=== PATIENT | male | born 1930 | race Caucasian/White ===

== ENCOUNTER 2017-04-24 11:13 | Inpatient (IN) | payer MEDICARE, OTHER ==
[2017-04-24 14:03] LABS: BASOPHIL % 0.6 % (0.0-0.4); Eosinophil % 0.7 % (0.00-5.0); Granulocytes % 77.3 % (36.0-66.0); Lymphocytes % 12.3 % (24.0-44.0); Mean Platelet Volume 9.6 fl (6-9.5); Monocytes % 9.1 % (0.0-12.0); Platelet Count 291 K/mm3 (150-450); Red Blood Count 3.97 M/mm3 (4.1-5.6); Red Cell Distribution Width 13.3 % (11.5-14.0); White Blood Count 10.9 K/mm3 (4.0-10.5)
[2017-04-24 14:18] LABS: Mean Corpuscular Hemoglobin 32.4 pg (26-32)
[2017-04-24 14:29] LABS: ALBUMIN 2.5 g/dL (3.4-5.0); ALKALINE PHOSPHATASE 76 U/L (46-116); ANION GAP 9.9 MEQ/L (5-15); BLOOD UREA NITROGEN 19 mg/dL (9-20); CHLORIDE 102 mEq/L (98-107); Glucose 144 MG/DL (70-110); Potassium 4.5 mEq/L (3.5-5.1); SGOT/AST 20 U/L (15-37); SGPT/ALT 23 U/L (12-78); SODIUM 137 mEq/L (136-145); Total Protein 6.3 gm/dL (6.4-8.2)
--- NOTE | 2017-04-24 14:46 | XRAY ---
Exam: AP upright portable chest film from 1325 hrs. on 04/24/2017. Comparison: Two-view upright sitting chest films from 03/05/2010. Indication: Short of breath. Findings: The transverse heart size appears within normal limits for this AP portable technique. Moderate tortuosity of the descending thoracic aorta is seen. The lungs are adequately expanded. I see no lung infiltrates, vascular congestion, pneumothorax, or pleural fluid. Degenerative changes are seen within the thoracic spine and both shoulders. Impression: 1. No air space infiltrates or other acute cardiopulmonary disease is seen.
[2017-04-24] MEDS: Sodium Chloride 0.9% 1000 ML 1,000 ML IV SCH (16:01)
[2017-04-24] MEDS: Levaquin 250MG/50ML D5W 250 MG/50 ML BAG IV SCH (16:01)
[2017-04-24 16:02] LABS: Collection Type CLEAN CATCH; Leukocyte Esterase NEGATIVE (NEGATIVE)
[2017-04-24 16:03] LABS: Bilirubin NEGATIVE (NEGATIVE); Blood NEGATIVE Ery/ul (0-5); COMPLETE URINE MICROSCOPIC? NO; Glucose NEGATIVE (NEGATIVE)
[2017-04-24] MEDS ORDERED: NON-FORMULARY ITEM (Cholecalciferol (Vitamin D3) [Vitamin D3] 1 CAP) PO SCH (16:15)
[2017-04-24] MEDS ORDERED: MEDICATION INTERVENTION MC PRN ×2 (16:32→16:36)
[2017-04-24] MEDS ORDERED: NEURONTIN 300 MG PO SCH (20:00)
[2017-04-24] MEDS ORDERED: BETA CAROTENE VITS C E PO SCH (22:00)
[2017-04-24] MEDS ORDERED: MINS PO SCH (22:00)
[2017-04-24] MEDS ORDERED: BABY ASPIRIN 81 MG CHEW PO SCH (22:00)
[2017-04-24] MEDS ORDERED: PSEUDOEPHEDRINE PO SCH (22:00)
[2017-04-24] MEDS ORDERED: CARVEDILOL PHOSPHATE 20 MG PO SCH (22:00)
[2017-04-24] MEDS ORDERED: GUAIFENESIN PO SCH (22:00)
[2017-04-24] MEDS ORDERED: GLUCOSAMINE SULFATE DIPOT CHLR PO SCH (22:00)
[2017-04-24] MEDS: Coreg 6.25 MG PO SCH (22:50)
[2017-04-24] MEDS: Mucinex 600MG ER Tabs PO SCH (22:51)
[2017-04-24] MEDS: Lantus Insulin SQ SCH (22:51)
[2017-04-24] MEDS: ECOTRIN 81 MG PO SCH (22:51)
[2017-04-24] MEDS: NORVASC 5 MG PO SCH (22:51)
[2017-04-24] MEDS: Ocuvite Tablet PO SCH (22:51)
[2017-04-24] MEDS: MAG-OX 400 PO SCH (22:51)
[2017-04-24] MEDS: ULTRAM 50 MG PO SCH (22:52)
[2017-04-24] MEDS: RYTHMOL 150 MG PO SCH (22:52)
[2017-04-25] MEDS: Coreg 6.25 MG PO SCH ×2 (09:34→21:16)
[2017-04-25] MEDS: RYTHMOL 150 MG PO SCH ×2 (09:34→21:17)
[2017-04-25] MEDS: CLARITIN 10 MG PO SCH (09:34)
[2017-04-25] MEDS: Zestril 20 MG PO SCH (09:34)
[2017-04-25] MEDS: THERAGRAN MULTIVITAMIN PO SCH (09:34)
[2017-04-25] MEDS: PLAVIX 75 MG Tablet PO SCH (09:34)
[2017-04-25] MEDS: Levaquin 250MG/50ML D5W 250 MG/50 ML BAG IV SCH (09:34)
[2017-04-25] MEDS: ULTRAM 50 MG PO SCH ×2 (09:34→21:18)
[2017-04-25] MEDS: LASIX 20 MG PO SCH (09:34)
[2017-04-25] MEDS: Lantus Insulin SQ SCH ×2 (09:35→21:19)
[2017-04-25] MEDS ORDERED: LYCOP PO SCH (10:00)
[2017-04-25] MEDS ORDERED: NON-FORMULARY ITEM (Cetirizine Hcl [Allergy Relief] 10 MG) PO SCH (10:00)
[2017-04-25] MEDS ORDERED: TRAMADOL HCL 100 MG PO SCH (10:00)
[2017-04-25] MEDS ORDERED: FOLIC PO SCH (10:00)
[2017-04-25] MEDS ORDERED: MULTIVIT MINS PO SCH (10:00)
[2017-04-25] MEDS ORDERED: CINNAMON BARK 1000 MG PO SCH (10:00)
[2017-04-25] MEDS ORDERED: FLUZONE HIGH-DOSE 2017-18 SYR IM ONE (10:00)
[2017-04-25] MEDS ORDERED: IRON PO SCH (10:00)
[2017-04-25] MEDS: Sodium Chloride 0.9% 1000 ML 1,000 ML IV SCH (13:50)
[2017-04-25 13:55] LABS: BASOPHIL % 0.6 % (0.0-0.4); Eosinophil % 1.6 % (0.00-5.0); Granulocytes % 75.4 % (36.0-66.0); Lymphocytes % 12.9 % (24.0-44.0); Mean Cell Volume 97.4 fl (78-100); Mean Platelet Volume 9.8 fl (6-9.5); Monocytes % 9.5 % (0.0-12.0); Platelet Count 275 K/mm3 (150-450); Red Blood Count 3.89 M/mm3 (4.1-5.6); Red Cell Distribution Width 13.4 % (11.5-14.0); White Blood Count 9.7 K/mm3 (4.0-10.5)
[2017-04-25 14:07] LABS: ALBUMIN 2.4 g/dL (3.4-5.0); ALKALINE PHOSPHATASE 79 U/L (46-116); ANION GAP 9.6 MEQ/L (5-15); BLOOD UREA NITROGEN 15 mg/dL (9-20); CHLORIDE 102 mEq/L (98-107); Carbon Dioxide 29.9 mEq/L (21-32); Glucose 202 MG/DL (70-110); Potassium 4.3 mEq/L (3.5-5.1); SGOT/AST 18 U/L (15-37); SGPT/ALT 30 U/L (12-78); SODIUM 137 mEq/L (136-145); Total Protein 6.3 gm/dL (6.4-8.2)
[2017-04-25 14:21] LABS: Mean Corpuscular Hemoglobin 31.8 pg (26-32)
[2017-04-25] MEDS: Ocuvite Tablet PO SCH (21:16)
[2017-04-25] MEDS: NORVASC 5 MG PO SCH (21:16)
[2017-04-25] MEDS: MAG-OX 400 PO SCH (21:17)
[2017-04-25] MEDS: Mucinex 600MG ER Tabs PO SCH (21:17)
[2017-04-25] MEDS: ECOTRIN 81 MG PO SCH (21:17)
[2017-04-25] MEDS: TYLENOL 325 MG PO PRN (23:37)
[2017-04-26] MEDS: Sodium Chloride 0.9% 1000 ML 1,000 ML IV SCH (10:00)
[2017-04-26] MEDS: Zestril 20 MG PO SCH (10:15)
[2017-04-26] MEDS: RYTHMOL 150 MG PO SCH ×2 (10:15→21:10)
[2017-04-26] MEDS: Levaquin 250MG/50ML D5W 250 MG/50 ML BAG IV SCH (10:15)
[2017-04-26] MEDS: Coreg 6.25 MG PO SCH ×2 (10:16→21:10)
[2017-04-26] MEDS: PLAVIX 75 MG Tablet PO SCH (10:16)
[2017-04-26] MEDS: Lantus Insulin SQ SCH ×2 (10:16→21:10)
[2017-04-26] MEDS: ULTRAM 50 MG PO SCH ×2 (10:16→21:10)
[2017-04-26] MEDS: LASIX 20 MG PO SCH (10:16)
[2017-04-26] MEDS: THERAGRAN MULTIVITAMIN PO SCH (10:16)
[2017-04-26] MEDS: CLARITIN 10 MG PO SCH (10:16)
[2017-04-26] MEDS: MAG-OX 400 PO SCH (21:10)
[2017-04-26] MEDS: NORVASC 5 MG PO SCH (21:10)
[2017-04-26] MEDS: Ocuvite Tablet PO SCH (21:10)
[2017-04-26] MEDS: Mucinex 600MG ER Tabs PO SCH (21:10)
[2017-04-26] MEDS: ECOTRIN 81 MG PO SCH (21:10)
[2017-04-26] MEDS: TYLENOL 325 MG PO PRN (21:17)
[2017-04-27] MEDS: Sodium Chloride 0.9% 1000 ML 1,000 ML IV SCH (07:37)
--- NOTE | 2017-04-27 09:35 | PROG NOTE ---
DATE: 04/26/2017 Chart is reviewed and events noted. At the time of this evaluation the patient is alert, awake and comfortable. Complains of swelling in left arm, left leg which is somewhat better. Complains of mild pain in left upper extremity. Denies any other new complaints. Appears comfortable. He denies increased shortness of breath. PHYSICAL EXAMINATION: VITAL SIGNS: Blood pressure 137/61, heart rate 98, respiratory rate 20, temperature 97.1F. Oxygen saturation 98%. HEENT: No pallor or icterus is noted. NECK: No JVD is present. CVS: S1, S2 present. RESPIRATORY: Breath sounds are bilaterally diminished. ABDOMEN: Obese, soft, nontender. NEURO: He is alert, answers simple questions appropriately, follows simple commands appropriately. EXTREMITIES: Edema on left upper and left lower extremity. LABORATORY DATA AND TESTS: There were no new labs today. Medications were reviewed. ASSESSMENT: An 86 year old man with impression: 1) CONGESTIVE HEART FAILURE WITH DECOMPSNATION. 2) CELLULITIS, LEFT UPPER EXTREMITY. 3) HYPERTENSION/CORONARY ARTERY DISEASE. 4) DIABETES MELLITUS. PLAN: Continue broad spectrum IV antibiotics. Continue diuretics. Follow up labs in the a.m. The plan was discussed with the patient and family. They seem to be in understanding and agreement. Discussed with patient's nurse, Sary.
[2017-04-27] MEDS ORDERED: VITAMIN D PO SCH (10:00)
[2017-04-27] MEDS: RYTHMOL 150 MG PO SCH (10:23)
[2017-04-27] MEDS: THERAGRAN MULTIVITAMIN PO SCH (10:23)
[2017-04-27] MEDS: CLARITIN 10 MG PO SCH (10:23)
[2017-04-27] MEDS: Levaquin 250MG/50ML D5W 250 MG/50 ML BAG IV SCH (10:23)
[2017-04-27] MEDS: ULTRAM 50 MG PO SCH (10:23)
[2017-04-27] MEDS: Coreg 6.25 MG PO SCH (10:23)
[2017-04-27] MEDS: Zestril 20 MG PO SCH (10:23)
[2017-04-27] MEDS: PLAVIX 75 MG Tablet PO SCH (10:24)
[2017-04-27] MEDS: LASIX 20 MG PO SCH (10:24)
[2017-04-27] MEDS: Lantus Insulin SQ SCH (10:25)
[2017-04-27 11:10] LABS: Mean Cell Volume 96.7 fl (78-100); Mean Corpuscular Hemoglobin 31.8 pg (26-32); Mean Platelet Volume 9.8 fl (6-9.5); Platelet Count 324 K/mm3 (150-450); Red Blood Count 3.99 M/mm3 (4.1-5.6); White Blood Count 10.9 K/mm3 (4.0-10.5)
[2017-04-27 11:24] LABS: ALBUMIN 2.4 g/dL (3.4-5.0); ALKALINE PHOSPHATASE 76 U/L (46-116); ANION GAP 9.4 MEQ/L (5-15); BLOOD UREA NITROGEN 14 mg/dL (9-20); CHLORIDE 101 mEq/L (98-107); Carbon Dioxide 30.3 mEq/L (21-32); Glucose 167 MG/DL (70-110); Potassium 4.5 mEq/L (3.5-5.1); SGOT/AST 27 U/L (15-37); SGPT/ALT 27 U/L (12-78); SODIUM 136 mEq/L (136-145); Total Protein 6.1 gm/dL (6.4-8.2)
[2017-04-27 12:00] VITALS: BP 162/74; PULSE 65; O2SAT 97
--- NOTE | 2017-04-27 12:48 | PCM.NOTE ---
Date and Time: 04/27/17 1247 Subjective Assessment: doing better Objective Exam General Appearance: no apparent distress, alert Neurologic Exam: alert, oriented x 3, cooperative, normal mood/affect, nml cerebellar function, sensation nml, No motor deficits Skin Exam: normal color, warm, dry Eye Exam: PERRL, EOMI, eyes nml inspection Ears, Nose, Throat Exam: normal ENT inspection, pharynx normal, moist mucous membranes Neck Exam: normal inspection, non-tender, supple, full range of motion Respiratory Exam: normal breath sounds, lungs clear, No respiratory distress Cardiovascular Exam: regular rate/rhythm, normal heart sounds Gastrointestinal/Abdomen Exam: soft, No tenderness, No mass Extremity Exam: normal inspection, normal range of motion Back Exam: normal inspection, normal range of motion, No CVA tenderness, No vertebral tenderness Male Genitalia Exam: deferred Rectal Exam: deferred OBJECTIVE DATA Vital Signs: Vital Signs - 24 hr Temp Pulse Resp BP Pulse Ox 04/27/17 11:59 98.1 F 65 16 162/74 97 04/27/17 07:52 97.6 F 66 20 161/72 95 04/27/17 04:33 98.2 F 82 18 137/76 93 L 04/26/17 23:38 98.4 F 83 22 137/73 97 04/26/17 21:30 68 20 96 04/26/17 20:00 98.1 F 78 19 148/69 96 04/26/17 16:00 97.3 F 72 20 139/64 97 Oxygen-Last 24 hours O2 Percentage 2 Liters = 28% O2 Percentage 2 Liters = 28% O2 Percentage 2 Liters = 28% O2 Percentage 2 Liters = 28% O2 Percentage 1 Liter = 24% Pain Assessment - Last Documented Pain Intensity 7 Pain Scale Used 0-10 Pain Scale Intake and Output: Intake & Output 04/25/17 04/26/17 04/27/17 04/28/17 11:59 11:59 11:59 11:59 Intake Total 1961 2981 4286 Output Total 1651 2450 3350 Balance 310 531 936 Weight 102.058 kg Lab Results: Accuchecks Accucheck Value: 167 Accucheck Value: 137 Accucheck Value: 206 Accucheck Value: 175 Lab Results-Last 24 Hours 04/27/17 04/27/17 Range/Units 10:30 10:40 WBC 10.9 H (4.0-10.5) K/mm3 RBC 3.99 L (4.1-5.6) M/mm3 Hgb 12.7 (12.5-18.0) gm/dl Hct 38.6 L (42-50) % MCV 96.7 (78-100) fl MCH 31.8 (26-32) pg MCHC 32.9 (32-36) g/dl RDW 13.0 (11.5-14.0) % Plt Count 324 (150-450) K/mm3 MPV 9.8 H (6-9.5) fl Sodium 136 (136-145) mEq/L Potassium 4.5 (3.5-5.1) mEq/L Chloride 101 (98-107) mEq/L Carbon Dioxide 30.3 (21-32) mEq/L Anion Gap 9.4 (5-15) MEQ/L BUN 14 (9-20) mg/dL Creatinine 0.78 (0.55-1.30) mg/dl Estimated GFR > 60 ML/MIN Glucose 167 H (70-110) MG/DL Calcium 8.6 (8.5-10.1) mg/dL Total Bilirubin 0.40 (0.2-1.0) mg/dL AST 27 (15-37) U/L ALT 27 (12-78) U/L Alkaline Phosphatase 76 (46-116) U/L NT-Pro-B Natriuret Pep 1652 H (0-450) pg/ml Serum Total Protein 6.1 L (6.4-8.2) gm/dL Albumin 2.4 L (3.4-5.0) g/dL Assessment/Plan (1) Cellulitis Current Visit: Yes Status: Acute Qualifiers: Site of cellulitis: extremity Site of cellulitis of extremity: upper extremity Laterality: left Qualified Code(s): L03.114 - Cellulitis of left upper limb Code(s): L03.90 - CELLULITIS, UNSPECIFIED (2) Heart failure Current Visit: Yes Status: Acute Qualifiers: Heart failure type: combined Heart failure chronicity: chronic Qualified Code(s): I50.42 - 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
--- NOTE | 2017-04-27 13:21 | PCM.DCORD ---
- Discharge Discharge Date: 04/27/17 Disposition: Home, Self-Care Condition: Stable Prescriptions: New Levofloxacin [Levaquin] 250 mg PO AC #7 tablet Continue Glucosamine Sulfate Dipot Chlr [Glucosamine] 2,000 mg PO HS Cinnamon Bark [Cinnamon] 1,000 mg PO DAILY Aspirin 81 gm Chew [Baby Aspirin 81 mg Chew] 81 mg PO HS Gabapentin 300 mg PO UD Lisinopril 20 mg [Zestril 20 MG] 20 mg PO DAILY Carvedilol Phosphate [Coreg Cr] 20 mg PO HS Amlodipine Besylate 5 mg [Norvasc 5 mg] 5 mg PO HS Insulin Glargine [Lantus Insulin] 40 unit SQ BID Furosemide [Lasix] 20 mg PO DAILY Guaifenesin/Pseudoephedrne HCl [Mucinex D ER Tablet] 400 mg PO HS Clopidogrel Bisulfate 75 mg [PLAVIX 75 MG Tablet] 75 mg PO DAILY Propafenone HCl 150 mg [Rythmol 150 mg] 150 mg PO BID Cholecalciferol (Vitamin D3) [Vitamin D3] 1 cap PO UD Magnesium Oxide [Magnesium] 400 mg PO HS Cetirizine HCl [Allergy Relief] 10 mg PO DAILY Multivit-Mins/Iron/Folic/Lycop [Centrum Men's Tablet] 1 each PO DAILY Tramadol HCl [Tramadol HCl ER] 100 mg PO DAILY Beta-Carotene(A)-Vits C,E/Mins [Vision Vitamins] 1 each PO HS Follow up with: DES BURNETTE MD [Primary Care Provider] - 1 Week Forms: Patient Portal Information
== END 2017-04-27 15:00 | disposition home health service (06) | DRG 292 ==
LOC: MED SURG 12:00 → OBSVTOIN 04-25 12:29
PROVIDERS: ADMIT General Practice; ATTEND General Practice
DX: I50.9 Heart failure, unspecified (principal); L03.114 Cellulitis of left upper limb; I25.810 Atherosclerosis of coronary artery bypass graft(s) without angina pectoris; K59.00 Constipation, unspecified; I10 Essential (primary) hypertension; E11.9 Type 2 diabetes mellitus without complications; Z79.899 Other long term (current) drug therapy
CPT/HCPCS: 36415; 71010; 80053; 81002; 82962; 83036; 83880; 85025; 85027; 87040; 87086; 93005; 94760; G0008; G0378; J1956; 90662; A9270-GY

== ENCOUNTER 2017-04-30 10:23 | Inpatient (IN) | payer MEDICARE, OTHER ==
[2017-04-30] MEDS ORDERED: Lasix 40 MG/4 ML IV ONE (10:33)
--- NOTE | 2017-04-30 10:35 | ERPHSYRPT ---
- History of Present Illness Time Seen by Provider: 04/30/17 10:29 Source: patient, EMS Physician History: The patient is an 86-year-old obese male brought in by ambulance from home complaining of worsening shortness of breath for about 2 days. He states he wouldn't have been able to make it to the night if it hadn't been for his CPAP. He is unable to sleep lying flat on his back, but instead needs to the upright in a seated position. He denies cough or fever. He was hospitalized last week for cellulitis. His legs are swollen but he states they always are. His past medical history is significant for hypertension, diabetes, CHF, A-fib, and morbid obesity. Timing/Duration: day(s) (2) Activities at Onset: rest Severity of Dyspnea-Max: moderate Severity of Dyspnea-Current: moderate Possible Cause: occasional episodes Associated Symptoms: edema, No cough, No chest pain/discomfort Allergies/Adverse Reactions: morphine Allergy (Verified 04/30/17 10:36) Home Medications: Amlodipine Besylate 5 mg [Norvasc 5 mg] 5 mg PO HS 01/30/15 [History] Aspirin 81 gm Chew [Baby Aspirin 81 mg Chew] 81 mg PO HS 01/30/15 [History ] Carvedilol Phosphate [Coreg Cr] 20 mg PO HS 01/30/15 [History] Cholecalciferol (Vitamin D3) [Vitamin D3] 1 cap PO UD 01/30/15 [History] Cinnamon Bark [Cinnamon] 1,000 mg PO DAILY 01/30/15 [History] Clopidogrel Bisulfate 75 mg [PLAVIX 75 MG Tablet] 75 mg PO DAILY 01/30/15 [History] Furosemide [Lasix] 20 mg PO DAILY 01/30/15 [History] Gabapentin 300 mg PO UD 01/30/15 [History] Glucosamine Sulfate Dipot Chlr [Glucosamine] 2,000 mg PO HS 01/30/15 [History] Guaifenesin/Pseudoephedrne HCl [Mucinex D ER Tablet] 400 mg PO HS 01/30/15 [ History] Insulin Glargine [Lantus Insulin] 40 unit SQ BID 01/30/15 [History] Lisinopril 20 mg [Zestril 20 MG] 20 mg PO DAILY 01/30/15 [History] Propafenone HCl 150 mg [Rythmol 150 mg] 150 mg PO BID 01/30/15 [History] Beta-Carotene(A)-Vits C,E/Mins [Vision Vitamins] 1 each PO HS 04/24/17 [History] Cetirizine HCl [Allergy Relief] 10 mg PO DAILY 04/24/17 [History] Magnesium Oxide [Magnesium] 400 mg PO HS 04/24/17 [History] Multivit-Mins/Iron/Folic/Lycop [Centrum Men's Tablet] 1 each PO DAILY 04/24/17 [ History] Tramadol HCl [Tramadol HCl ER] 100 mg PO DAILY 04/24/17 [History] Hx Tetanus, Diphtheria Vaccination/Date Given: No Hx Influenza Vaccination/Date Given: Yes Hx Pneumococcal Vaccination/Date Given: Yes - Review of Systems Constitutional: No Fever, No Chills Eyes: No Symptoms Ears, Nose, & Throat: No Symptoms Respiratory: Dyspnea Cardiac: No Chest Pain, No Edema, No Syncope Abdominal/Gastrointestinal: No Abdominal Pain, No Nausea, No Vomiting, No Diarrhea Genitourinary Symptoms: No Dysuria Musculoskeletal: No Back Pain, No Neck Pain Skin: Cellulitis Neurological: No Dizziness, No Focal Weakness, No Sensory Changes Psychological: No Symptoms Endocrine: No Symptoms Hematologic/Lymphatic: No Symptoms Immunological/Allergic: No Symptoms All Other Systems: Reviewed and Negative - Past Medical History Pertinent Past Medical History: Yes Neurological History: No Pertinent History ENT History: No Pertinent History Cardiac History: High Cholesterol Respiratory History: No Pertinent History Endocrine Medical History: Diabetes Type II Musculoskeletal History: No Pertinent History GI Medical History: No Pertinent History History: Renal Disease Male Reproductive Disorders: No Pertinent History - Past Surgical History Past Surgical History: Yes (knee, hip replacement, stint) Neuro Surgical History: No Pertinent History Cardiac: Cardiac Stent Respiratory: No Pertinent History Gastrointestinal: No Pertinent History Genitourinary: No Pertinent History Musculoskeletal: Joint Replacement Male Surgical History: No Pertinent History Other Surgical History: R. Hip, Knee replacent - Social History Smoking Status: Never smoker Exposure to second hand smoke: Yes Drug Use: none Patient Lives Alone: No - Nursing Vital Signs Nursing Vital Signs: Initial Vital Signs Temperature 97.3 F 04/30/17 10:29 Pulse Rate 82 04/30/17 10:29 Respiratory Rate 34 H 10/05/17 10:29 Blood Pressure 156/92 04/30/17 10:29 O2 Sat by Pulse Oximetry 70 L 04/30/17 10:29 Pain Scale Pain Intensity 0 - Physical Exam General Appearance: moderate distress Eye Exam: PERRL/EOMI Neck Exam: normal inspection, supple Respiratory Exam: crackles/rales Cardiovascular/Chest Exam: normal heart sounds, regular rate/rhythm Abdominal/Gastrointestinal Exam: soft, No tenderness, No distention, No mass Rectal Exam: not done Extremity Exam: non-tender, normal range of motion, normal inspection, no calf tenderness, no pedal edema, pedal edema (3+), swelling (also swelling of left arm.) Neurologic Exam: alert, oriented x 3, cooperative, 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, sensation nml, No motor deficits Skin Exam: normal color, warm, No dry SpO2 Interpretation: hypoxic, O2 applied - Course EKG Interpreted by Me: RATE, A-fib, Left [place] Deviation - Radiology Exams Chest X-ray Interpretation: Teleradiologist Report, Other (Port chest shows developing cardiomegaly, vascular congestion and small bibasilar effusions per Dr Conde.) Ordered Tests: Active Orders 24 hr Category Date Time Status Chief Cook STAT Care 04/30/17 10:34 Active EKG-ER Only STAT Care 04/30/17 10:33 Active IV Insertion STAT Care 04/30/17 10:33 Active Oxygen-ED Only NASAL CANNULA 2 lpm Care 04/30/17 10:33 Active CHEST 1 VIEW (PORTABLE) Stat Exams 04/30/17 10:33 Completed ARTERIAL BLOOD GASES Stat Lab 04/30/17 10:35 Completed BLOOD CULTURE Stat Lab 04/30/17 10:50 Received CBC W DIFF Stat Lab 04/30/17 10:45 Completed CMP Stat Lab 04/30/17 10:45 Completed D-DIMER QUANTITATION Stat Lab 04/30/17 10:45 Completed Lactic Acid Stat Lab 04/30/17 10:35 Completed NT PRO BNP Stat Lab 04/30/17 10:45 Completed TROPONIN Q3H Lab 04/30/17 10:45 Completed TROPONIN Q3H Lab 04/30/17 13:45 Ordered TROPONIN Q3H Lab 04/30/17 16:45 Ordered TROPONIN Q3H Lab 04/30/17 19:45 Ordered TROPONIN Q3H Lab 04/30/17 22:45 Ordered BiPap/CPAP Assessment STAT RT 04/30/17 10:50 Active Medication Summary Discontinued Medications Generic Name Dose Route Start Last Admin Trade Name Kiersten PRN Reason Stop Dose Admin Furosemide 40 mg 04/30/17 10:33 04/30/17 11:05 Lasix 40 Mg/4 Ml IV 04/30/17 10:34 40 mg STAT ONE Administration Furosemide Confirm 04/30/17 11:04 Lasix 40 Mg/4 Ml Administered 04/30/17 11:05 Dose 40 mg .ROUTE .Sun [id number] ONE Lab/Rad Data: Laboratory Result Diagrams 04/30/17 10:45 04/30/17 10:45 Laboratory Results 04/30/17 04/30/17 04/30/17 Range/Units 10:45 10:45 10:45 WBC (4.0-10.5) K/mm3 RBC (4.1-5.6) M/mm3 Hgb (12.5-18.0) gm/dl Hct (42-50) % MCV (78-100) fl MCH (26-32) pg MCHC (32-36) g/dl RDW (11.5-14.0) % Plt Count (150-450) K/mm3 MPV (6-9.5) fl Gran % (36.0-66.0) % Lymphocytes % (24.0-44.0) % Monocytes % (0.0-12.0) % Eosinophils % (0.00-5.0) % Basophils % (0.0-0.4) % Basophils # (0-0.4) D-Dimer 562 H* (0-500) ng/mL Puncture Site pCO2 (35-45) mmHg pO2 (75-100) mmHg Base Excess (-2.0-2.0) O2 Saturation (94-100) g/dF ABG pH (7.35-7.45) ABG HCO3 (22-28) ABG O2 Sat (Measured) (95-100) % Shawn Test A-a Gradient a/A Ratio Hemoglobin Carboxyhemoglobin (0.0-6.9) % THgb Methemoglobin (1.4-1.5) % Potassium 4.5 (3.5-5.1) Temperature C POC O2 Flow Rate % Sodium 133 L (136-145) mEq/L Chloride 94 L (98-107) mEq/L Carbon Dioxide 35.4 H (21-32) mEq/L Anion Gap 8.0 (5-15) MEQ/L BUN 16 (9-20) mg/dL Creatinine 0.80 (0.55-1.30) mg/dl Estimated GFR > 60 ML/MIN Glucose 125 H (70-110) MG/DL Lactic Acid (0.4-2.0) Calcium 8.8 (8.5-10.1) mg/dL Total Bilirubin 0.50 (0.2-1.0) mg/dL AST 22 (15-37) U/L ALT 36 (12-78) U/L Alkaline Phosphatase 88 (46-116) U/L Troponin I 0.037 (0.000-0.056) ng/ml NT-Pro-B Natriuret Pep 1282 H (0-450) pg/ml Serum Total Protein 6.5 (6.4-8.2) gm/dL Albumin 2.8 L (3.4-5.0) g/dL 04/30/17 04/30/17 Range/Units 10:45 10:35 WBC 12.1 H (4.0-10.5) K/mm3 RBC 4.00 L (4.1-5.6) M/mm3 Hgb 12.7 (12.5-18.0) gm/dl Hct 38.5 L (42-50) % MCV 96.3 (78-100) fl MCH 31.7 (26-32) pg MCHC 33.0 (32-36) g/dl RDW 13.1 (11.5-14.0) % Plt Count 383 (150-450) K/mm3 MPV 9.5 (6-9.5) fl Gran % 82.0 H (36.0-66.0) % Lymphocytes % 8.7 L (24.0-44.0) % Monocytes % 7.9 (0.0-12.0) % Eosinophils % 0.7 (0.00-5.0) % Basophils % 0.7 (0.0-0.4) % Basophils # 0.08 (0-0.4) D-Dimer (0-500) ng/mL Puncture Site RIGHT RADIAL pCO2 69 H* (35-45) mmHg pO2 68 L (75-100) mmHg Base Excess 7.9 H (-2.0-2.0) O2 Saturation 91.6 L (94-100) g/dF ABG pH 7.33 L (7.35-7.45) ABG HCO3 36.4 H* (22-28) ABG O2 Sat (Measured) 93.7 L (95-100) % Shawn Test YES A-a Gradient 131 a/A Ratio 0.34 Hemoglobin 13.4 Carboxyhemoglobin 1.5 (0.0-6.9) % THgb Methemoglobin 0.6 L (1.4-1.5) % Potassium 4.6 (3.5-5.1) Temperature 37.0 C POC O2 Flow Rate 40 % Sodium (136-145) mEq/L Chloride (98-107) mEq/L Carbon Dioxide (21-32) mEq/L Anion Gap (5-15) MEQ/L BUN (9-20) mg/dL Creatinine (0.55-1.30) mg/dl Estimated GFR ML/MIN Glucose (70-110) MG/DL Lactic Acid 0.5 (0.4-2.0) Calcium (8.5-10.1) mg/dL Total Bilirubin (0.2-1.0) mg/dL AST (15-37) U/L ALT (12-78) U/L Alkaline Phosphatase (46-116) U/L Troponin I (0.000-0.056) ng/ml NT-Pro-B Natriuret Pep (0-450) pg/ml Serum Total Protein (6.4-8.2) gm/dL Albumin (3.4-5.0) g/dL - Progress Progress: improved Air Movement: good Blood Culture(s) Obtained: Yes Discussed with : Saige Counseled pt/family regarding: lab results, diagnosis, rad results - Departure Time of Disposition: 13:11 Departure Disposition: In-patient Admission (per Dr Burnette) Clinical Impression: CHF (congestive heart failure) Condition: Stable Critical Care Time: No Referrals: DES BURNETTE MD [Primary Care Provider] - Instructions: Heart Failure
[2017-04-30 10:39] LABS: A-aADO2 131; ALLEN TEST OK? YES; ARTERIAL BLD GAS O2 SATURATION 93.7 % (95-100); ARTERIAL BLOOD GAS BASE EXCESS 7.9 (-2.0-2.0); ARTERIAL BLOOD GAS FIO2 40 %; ARTERIAL BLOOD GAS PO2 68 mmHg (75-100); ARTERIAL BLOOD GAS pH 7.33 (7.35-7.45); Lactic Acid 0.5 (0.4-2.0)
[2017-04-30] MEDS ORDERED: Lasix 40 MG/4 ML ONE (11:04)
[2017-04-30 11:07] LABS: BASOPHIL % 0.7 % (0.0-0.4); Eosinophil % 0.7 % (0.00-5.0); Lymphocytes % 8.7 % (24.0-44.0); Mean Cell Volume 96.3 fl (78-100); Mean Platelet Volume 9.5 fl (6-9.5); Monocytes % 7.9 % (0.0-12.0); Platelet Count 383 K/mm3 (150-450); Red Cell Distribution Width 13.1 % (11.5-14.0); White Blood Count 12.1 K/mm3 (4.0-10.5)
[2017-04-30 11:10] LABS: Mean Corpuscular Hemoglobin 31.7 pg (26-32)
[2017-04-30 11:36] LABS: ALBUMIN 2.8 g/dL (3.4-5.0); ALKALINE PHOSPHATASE 88 U/L (46-116); BLOOD UREA NITROGEN 16 mg/dL (9-20); CHLORIDE 94 mEq/L (98-107); Carbon Dioxide 35.4 mEq/L (21-32); Glucose 125 MG/DL (70-110); Potassium 4.5 mEq/L (3.5-5.1); SGOT/AST 22 U/L (15-37); SGPT/ALT 36 U/L (12-78); SODIUM 133 mEq/L (136-145); Total Protein 6.5 gm/dL (6.4-8.2)
--- NOTE | 2017-04-30 12:03 | XRAY ---
Indication: Short of breath. Comparison: April 24, 2017. Portable chest demonstrates developing cardiomegaly, vascular congestion, and small bibasilar effusions favoring cardiac decompensation. Superimposed pneumonia not completely excluded.
[2017-04-30] MEDS ORDERED: Lasix 40 MG/4 ML IV SCH (17:00)
[2017-04-30] MEDS ORDERED: TRAMADOL HCL 100 MG PO PRN (17:08)
[2017-04-30] MEDS ORDERED: NEURONTIN 300 MG PO SCH (17:15)
[2017-04-30] MEDS ORDERED: NON-FORMULARY ITEM (Cholecalciferol (Vitamin D3) [Vitamin D3] 1 CAP) PO SCH (17:15)
[2017-04-30] MEDS ORDERED: MEDICATION INTERVENTION MC PRN ×2 (17:24→17:25)
[2017-04-30] MEDS ORDERED: VITAMIN D PO SCH (17:30)
[2017-04-30] MEDS ORDERED: Lantus Insulin ONE (19:57)
[2017-04-30] MEDS ORDERED: RYTHMOL 150 MG ONE (19:57)
[2017-04-30] MEDS ORDERED: ECOTRIN 81 MG PO ONE (19:57)
[2017-04-30] MEDS ORDERED: BACTRIM DS TABLET PO ONE (19:58)
[2017-04-30] MEDS ORDERED: Ocuvite Tablet ONE (19:58)
[2017-04-30] MEDS ORDERED: Coreg 6.25 MG ONE (19:58)
[2017-04-30] MEDS ORDERED: MAG-OX 400 ONE (19:58)
[2017-04-30] MEDS ORDERED: NORVASC 5 MG ONE (19:59)
[2017-04-30] MEDS ORDERED: Senokot-S Tablet PO PRN (20:58)
[2017-04-30] MEDS: NORVASC 5 MG PO SCH (21:04)
[2017-04-30] MEDS: BACTRIM DS TABLET PO SCH (21:04)
[2017-04-30] MEDS: MAG-OX 400 PO SCH (21:04)
[2017-04-30] MEDS: RYTHMOL 150 MG PO SCH (21:04)
[2017-04-30] MEDS: Coreg 6.25 MG PO SCH (21:04)
[2017-04-30] MEDS: ECOTRIN 81 MG PO SCH (21:04)
[2017-04-30] MEDS: Ocuvite Tablet PO SCH (21:05)
[2017-04-30] MEDS ORDERED: CARVEDILOL PHOSPHATE 20 MG PO SCH (22:00)
[2017-04-30] MEDS ORDERED: MINS PO SCH (22:00)
[2017-04-30] MEDS ORDERED: GLUCOSAMINE SULFATE DIPOT CHLR PO SCH (22:00)
[2017-04-30] MEDS ORDERED: GUAIFENESIN PO SCH (22:00)
[2017-04-30] MEDS ORDERED: BABY ASPIRIN 81 MG CHEW PO SCH (22:00)
[2017-04-30] MEDS ORDERED: PSEUDOEPHEDRINE PO SCH (22:00)
[2017-04-30] MEDS ORDERED: BETA CAROTENE VITS C E PO SCH (22:00)
[2017-04-30] MEDS: Lantus Insulin SQ SCH (22:19)
[2017-05-01] MEDS ORDERED: Senokot-S Tablet PO PRN (06:15)
[2017-05-01] MEDS ORDERED: Sodium Chloride 0.9% 10 ML FLUSH Syringe IV PRN (08:34)
[2017-05-01] MEDS: BACTRIM DS TABLET PO SCH ×2 (08:57→22:20)
[2017-05-01] MEDS: CLARITIN 10 MG PO SCH (08:57)
[2017-05-01] MEDS: PLAVIX 75 MG Tablet PO SCH (08:57)
[2017-05-01] MEDS: THERAGRAN MULTIVITAMIN PO SCH (08:58)
[2017-05-01] MEDS: ULTRAM 50 MG PO PRN (08:58)
[2017-05-01] MEDS: Zestril 20 MG PO SCH (08:58)
[2017-05-01] MEDS: RYTHMOL 150 MG PO SCH ×2 (08:58→22:20)
[2017-05-01] MEDS: Coreg 6.25 MG PO SCH ×2 (08:59→22:20)
[2017-05-01] MEDS: Lantus Insulin SQ SCH ×2 (08:59→22:23)
[2017-05-01] MEDS: PATIENT OWN MEDICATION PO SCH ×3 (08:59→22:21)
[2017-05-01] MEDS ORDERED: LYCOP PO SCH (10:00)
[2017-05-01] MEDS ORDERED: NEURONTIN 300 MG PO SCH (10:00)
[2017-05-01] MEDS ORDERED: LASIX 20 MG PO SCH (10:00)
[2017-05-01] MEDS ORDERED: IRON PO SCH (10:00)
[2017-05-01] MEDS ORDERED: NON-FORMULARY ITEM (Cetirizine Hcl [Allergy Relief] 10 MG) PO SCH (10:00)
[2017-05-01] MEDS ORDERED: VITAMIN D PO SCH (10:00)
[2017-05-01] MEDS ORDERED: MULTIVIT MINS PO SCH (10:00)
[2017-05-01] MEDS ORDERED: FOLIC PO SCH (10:00)
[2017-05-01] MEDS ORDERED: CINNAMON BARK 1000 MG PO SCH (10:00)
[2017-05-01] MEDS: Lasix 40 MG/4 ML IV SCH ×2 (12:54→16:01)
[2017-05-01] MEDS: Sodium Chloride 0.9% 10 ML FLUSH Syringe IV SCH (12:54)
--- NOTE | 2017-05-01 13:08 | PCM.HP ---
History of Present Illness - Chief Complaint Chief Complaint: shortness of breath for 2 days History of Present Illness: Mr.PIGG MARTIN is a 86 year old male. came to ER with worsening shortness of breath for 1-2 days. patient was just released from [facility] 2 days ago with Dx of of left arm cellulitis - Review of Systems Constitutional: No Fever, No Chills Eyes: No Symptoms Ears, Nose, & Throat: No Symptoms Respiratory: Cough, Orthopnea, Short Of Breath Cardiac: No Chest Pain, No Edema, No Syncope Abdominal/Gastrointestinal: No Abdominal Pain, No Nausea, No Vomiting, No Diarrhea Genitourinary Symptoms: No Dysuria Musculoskeletal: No Back Pain, No Neck Pain Skin: No Rash Neurological: No Dizziness, No Focal Weakness, No Sensory Changes Psychological: No Symptoms Endocrine: No Symptoms Hematologic/Lymphatic: No Symptoms Immunological/Allergic: No Symptoms Medications & Allergies Home Medications: Home Medication List Amlodipine Besylate 5 mg [Norvasc 5 mg] 5 mg PO HS 01/30/15 [History Confirmed 04/30/17] Aspirin 81 gm Chew [Baby Aspirin 81 mg Chew] 81 mg PO HS 01/30/15 [ History Confirmed 04/30/17] Carvedilol Phosphate [Coreg Cr] 20 mg PO HS 01/30/15 [History Confirmed 04/30/17 ] Cholecalciferol (Vitamin D3) [Vitamin D3] 1 cap PO UD 01/30/15 [History Confirmed 04/30/17] Cinnamon Bark [Cinnamon] 1,000 mg PO DAILY 01/30/15 [History Confirmed 04/30/17] Clopidogrel Bisulfate 75 mg [PLAVIX 75 MG Tablet] 75 mg PO DAILY 01/30/15 [History Confirmed 04/30/17] Furosemide [Lasix] 20 mg PO DAILY 01/30/15 [History Confirmed 04/30/17] Gabapentin 300 mg PO UD 01/30/15 [History Confirmed 04/30/17] Glucosamine Sulfate Dipot Chlr [Glucosamine] 2,000 mg PO HS 01/30/15 [History Confirmed 04/30/17] Guaifenesin/Pseudoephedrne HCl [Mucinex D ER Tablet] 400 mg PO HS 01/30/15 [ History Confirmed 04/30/17] Insulin Glargine [Lantus Insulin] 40 unit SQ BID 01/30/15 [History Confirmed 12/10] Lisinopril 20 mg [Zestril 20 MG] 20 mg PO DAILY 01/30/15 [History Confirmed 04/30/17] Propafenone HCl 150 mg [Rythmol 150 mg] 150 mg PO BID 01/30/15 [History Confirmed 04/30/17] Beta-Carotene(A)-Vits C,E/Mins [Vision Vitamins] 1 each PO HS 04/24/17 [History Confirmed 04/30/17] Cetirizine HCl [Allergy Relief] 10 mg PO DAILY 04/24/17 [History Confirmed 04/30] Magnesium Oxide [Magnesium] 400 mg PO HS 04/24/17 [History Confirmed 04/30/17] Multivit-Mins/Iron/Folic/Lycop [Centrum Men's Tablet] 1 each PO DAILY 04/24/17 [ History Confirmed 04/30/17] Tramadol HCl [Tramadol HCl ER] 100 mg PO Q6HPRN PRN 04/24/17 [History Confirmed 04/30/17] Naproxen Sodium 220 mg [Aleve 220 MG] 220 mg PO Q6HPRN PRN 04/30/17 [ History Confirmed 04/30/17] Sennosides/Docusate Sodium [Senna-Docusate Sodium Tablet] 1 each PO BIDPRN PRN 04/30/17 [History Confirmed 04/30/17] Sulfamethoxazole/Trimethoprim [Bactrim Ds Tablet] 1 each PO BID 04/30/17 [ History Confirmed 04/30/17] Allergies/Adverse Reactions: Allergies Allergy/AdvReac Type Severity Reaction Status Date / Time morphine Allergy Verified 04/30/17 10:36 - Past Medical History Past Medical History: Yes Neurological History: No Pertinent History ENT History: No Pertinent History Cardiac History: High Cholesterol Respiratory History: No Pertinent History Endocrine Medical History: Diabetes Type II Musculoskelatal History: No Pertinent History GI Medical History: No Pertinent History History: Renal Disease Male Reproductive Disorders: No Pertinent History - Past Surgical History Past Surgical History: Yes (knee, hip replacement, stint) Neuro Surgical History: No Pertinent History Cardiac History: Cardiac Stent Respiratory Surgery: No Pertinent History GI Surgical History: No Pertinent History Genitourinary Surgical Hx: No Pertinent History Musculskeletal Surgical Hx: Joint Replacement Male Surgical History: No Pertinent History Other Surgical History: R. Hip, Knee replacent - Social History Smoking Status: Never smoker Exposure to second hand smoke: Yes Alcohol: None Drug Use: none - Physical Exam Vital Signs: Vital Signs - 24 hr Temp Pulse Resp BP Pulse Ox 05/01/17 11:25 97.9 F 84 20 118/60 91 L 05/01/17 07:12 98.0 F 70 20 125/58 95 05/01/17 03:57 99.4 F 104 H 24 125/61 90 L 05/01/17 00:00 98.6 F 64 22 135/70 93 L 04/30/17 20:05 64 22 93 L 04/30/17 20:00 98.2 F 73 24 147/68 92 L 04/30/17 16:11 97.4 F 86 20 136/80 98 04/30/17 15:36 97.3 F 88 20 132/72 97 04/30/17 15:32 97 04/30/17 15:10 77 22 98 04/30/17 14:27 97.3 F 88 20 132/72 95 04/30/17 14:05 98 Oxygen-Last 24 hours O2 Percentage 4 Liters = 36% O2 Percentage 4 Liters = 36% O2 Percentage 4 Liters = 36% O2 Percentage 4 Liters = 36% O2 Percentage 4 Liters = 36% O2 Percentage 4 Liters = 36% O2 Percentage 4 Liters = 36% O2 Percentage 5 Liters = 40% General Appearance: no apparent distress, alert Neurologic Exam: alert, oriented x 3, cooperative, normal mood/affect, nml cerebellar function, nml station & gait, sensation nml, No motor deficits Eye Exam: PERRL/EOMI, eyes nml inspection Ears, Nose, Throat Exam: normal ENT inspection, TMs normal, pharynx normal, moist mucous membranes Neck Exam: normal inspection, non-tender, supple, full range of motion Respiratory Exam: diminished breath sounds, crackles/rales, rhonchi, No respiratory distress Cardiovascular Exam: regular rate/rhythm, normal heart sounds, normal peripheral pulses Gastrointestinal/Abdomen Exam: soft, normal bowel sounds, No tenderness, No mass Back Exam: normal inspection, normal range of motion, No CVA tenderness, No vertebral tenderness Extremity Exam: normal inspection, normal range of motion, pelvis stable Skin Exam: normal color, warm, dry, No rash Lymphatic Exam: No adenopathy Results - Labs Lab/Micro Results: Accuchecks Date 05/01/17 Date 05/01/17 Date 04/30/17 Date 04/30/17 Time 22:00 Time 16:03 Accucheck Value: 175 Accucheck Value: 89 Accucheck Value: 200 Accucheck Value: 73 Lab Results-Last 24 Hours 04/30/17 04/30/17 04/30/17 Range/Units 16:48 20:30 23:15 Troponin I 0.035 0.037 0.032 (0.000-0.056) ng/ml Accuchecks Date 05/01/17 Date 05/01/17 Date 04/30/17 Date 04/30/17 Time 22:00 Time 16:03 Accucheck Value: 175 Accucheck Value: 89 Accucheck Value: 200 Accucheck Value: 73 - Other Procedures and Tests Respiratory Therapy 04/30/17 21:00 BiPap/CPAP Assessment ROUTINE Assessment/Plan (1) CHF (congestive heart failure) Current Visit: Yes Status: Acute Qualifiers: Congestive heart failure type: combined Congestive heart failure chronicity : acute on chronic Qualified Code(s): I50.43 - Acute on chronic combined systolic (congestive) and diastolic (congestive) heart failure Assessment & Plan: Chief Complaint Diagnosis chf Allergies Allergy/AdvReac Type Severity Reaction Status Date / Time morphine Allergy Verified 04/30/17 10:36 Vital Signs (Last 24 hours) Temp Pulse Resp BP Pulse Ox 05/01/17 11:25 97.9 F 84 20 118/60 91 L 05/01/17 07:12 98.0 F 70 20 125/58 95 05/01/17 03:57 99.4 F 104 H 24 125/61 90 L 05/01/17 00:00 98.6 F 64 22 135/70 93 L 04/30/17 20:05 64 22 93 L 04/30/17 20:00 98.2 F 73 24 147/68 92 L 04/30/17 16:11 97.4 F 86 20 136/80 98 04/30/17 15:36 97.3 F 88 20 132/72 97 04/30/17 15:32 97 04/30/17 15:10 77 22 98 04/30/17 14:27 97.3 F 88 20 132/72 95 04/30/17 14:05 98 Home Medications Medication Instructions Recorded Confirmed Last Taken Type Naproxen Sodium 220 mg [Aleve 220 mg PO Q6HPRN PRN 04/30/17 04/30/17 Unknown History 220 MG] Sennosides/Docusate Sodium 1 each PO BIDPRN PRN 04/30/17 04/30/17 Unknown History [Senna-Docusate Sodium Tablet] Sulfamethoxazole/Trimethoprim 1 each PO BID 04/30/17 04/30/17 04/30/17 08:00 History [Bactrim Ds Tablet] 1 tab Current Medications Generic Name Dose Route Start Last Admin Trade Name Freq PRN Reason Stop Dose Admin Amlodipine Besylate 5 mg 04/30/17 22:00 04/30/17 21:04 Norvasc 5 Mg PO 05/30/17 21:59 5 mg HS CRYSTAL Administration Aspirin 81 mg 04/30/17 22:00 04/30/17 21:04 Ecotrin 81 Mg PO 05/30/17 21:59 81 mg HS CRYSTAL Administration Carvedilol 6.25 mg 04/30/17 22:00 05/01/17 08:59 Coreg 6.25 Mg PO 05/30/17 21:59 6.25 mg BID CRYSTAL Administration Cholecalciferol 5,000 unit 05/01/17 10:00 05/01/17 09:02 Vitamin D PO 05/31/17 09:59 5,000 unit MoWeFr CRYSTAL Administration Clopidogrel Bisulfate 75 mg 05/01/17 10:00 05/01/17 08:57 Plavix 75 Mg Tablet PO 05/31/17 09:59 75 mg DAILY CRYSTAL Administration Furosemide 40 mg 05/01/17 12:45 05/01/17 12:54 Lasix 40 Mg/4 Ml IV 05/31/17 12:44 40 mg BID DIURETIC CRYSTAL Administration Gabapentin 300 mg 05/01/17 10:00 05/01/17 09:02 Neurontin 300 Mg PO 05/31/17 09:59 300 mg MoWeFr CRYSTAL Administration Insulin Glargine 40 unit 04/30/17 22:00 05/01/17 08:59 Lantus Insulin SQ 05/30/17 21:59 40 unit BID CRYSTAL Administration Lisinopril 20 mg 05/01/17 10:00 05/01/17 08:58 Zestril 20 Mg PO 05/31/17 09:59 20 mg DAILY CRYSTAL Administration Loratadine 10 mg 05/01/17 10:00 05/01/17 08:57 Claritin 10 Mg PO 05/31/17 09:59 10 mg DAILY CRYSTAL Administration Magnesium Oxide 400 mg 04/30/17 22:00 04/30/17 21:04 Mag-Ox 400 PO 05/30/17 21:59 400 mg HS CRYSTAL Administration Multivitamins 1 tab 05/01/17 10:00 05/01/17 08:58 Theragran Multivitamin PO 05/31/17 09:59 1 tab DAILY CRYSTAL Administration Multivitamins/Minerals 1 tab 04/30/17 22:00 04/30/17 21:05 Ocuvite Tablet PO 05/30/17 21:59 1 tab HS CRYSTAL Administration Patient Own Med ( 0 each 05/01/17 10:00 05/01/17 08:59 Cinnamon) PO 05/31/17 09:59 1 each DAILY CRYSTAL Administration Patient Own Med ( 0 each 05/01/17 22:00 Mucinex-D) PO 05/31/17 21:59 HS CRYSTAL Patient Own Med ( 0 each 05/01/17 22:00 Glucosamine) PO 05/31/17 21:59 HS CRYSTAL Propafenone HCl 150 mg 04/30/17 22:00 05/01/17 08:58 Rythmol 150 Mg PO 05/30/17 21:59 150 mg BID CRYSTAL Administration Senna/Docusate Sodium 1 udtab 05/01/17 06:15 05/01/17 08:58 Senokot-S Tablet PO 05/30/17 20:57 1 udtab BID PRN PRN Administration CONSTIPATION Sodium Chloride 10 ml 05/01/17 14:00 05/01/17 12:54 Sodium Chloride 0.9% 10 Ml Flush Syringe IV 05/31/17 13:59 10 ml Q8HT CRYSTAL Administration Sodium Chloride 10 ml 05/01/17 08:34 Sodium Chloride 0.9% 10 Ml Flush Syringe IV 05/31/17 08:33 PRN PRN FLUSH Tramadol HCl 100 mg 04/30/17 17:16 05/01/17 08:58 Ultram 50 Mg PO 05/30/17 17:15 100 mg Q6H/PRN PRN Administration Trimethoprim/Sulfamethoxazole 1 tab 04/30/17 22:00 05/01/17 08:57 Bactrim Ds Tablet PO 05/30/17 21:59 1 tab BID CRYSTAL Administration Discontinued Medications Generic Name Dose Route Start Last Admin Trade Name Freq PRN Reason Stop Dose Admin Amlodipine Besylate Confirm 04/30/17 19:59 Norvasc 5 Mg Administered 04/30/17 20:00 Dose 5 mg .ROUTE .STK-MED ONE Aspirin Confirm 04/30/17 19:57 Ecotrin 81 Mg Administered 04/30/17 19:58 Dose 81 mg PO .STK-MED ONE Carvedilol Confirm 04/30/17 19:58 Coreg 6.25 Mg Administered 04/30/17 19:59 Dose 6.25 mg .ROUTE .STK-MED ONE Cholecalciferol 5,000 unit 04/30/17 17:30 Vitamin D PO 05/30/17 17:29 UD CRYSTAL Furosemide 40 mg 04/30/17 10:33 04/30/17 11:05 Lasix 40 Mg/4 Ml IV 04/30/17 10:34 40 mg STAT ONE Administration Furosemide Confirm 04/30/17 11:04 Lasix 40 Mg/4 Ml Administered 04/30/17 11:05 Dose 40 mg .ROUTE .STK-MED ONE Furosemide 40 mg 04/30/17 17:00 04/30/17 16:55 Lasix 40 Mg/4 Ml IV 05/30/17 16:59 40 mg BID DIURETIC CRYSTAL Administration Furosemide 20 mg 05/01/17 10:00 05/01/17 08:58 Lasix 20 Mg PO 05/31/17 09:59 20 mg DAILY CRYSTAL Administration Gabapentin 300 mg 04/30/17 17:15 Neurontin 300 Mg PO 05/30/17 17:14 UD CRYSTAL Insulin Glargine Confirm 04/30/17 19:57 Lantus Insulin Administered 04/30/17 19:58 Dose 40 unit .ROUTE .STK-MED ONE Magnesium Oxide Confirm 04/30/17 19:58 Mag-Ox 400 Administered 04/30/17 19:59 Dose 400 mg .ROUTE .STK-MED ONE Multivitamins/Minerals Confirm 04/30/17 19:58 Ocuvite Tablet Administered 04/30/17 19:59 Dose 1 tab .ROUTE .STK-MED ONE Propafenone HCl Confirm 04/30/17 19:57 Rythmol 150 Mg Administered 04/30/17 19:58 Dose 150 mg .ROUTE .STK-MED ONE Senna/Docusate Sodium 1 udtab 04/30/17 20:58 04/30/17 21:04 Senokot-S Tablet PO 05/30/17 21:59 1 udtab BID PRN Administration CONSTIPATION Trimethoprim/Sulfamethoxazole Confirm 04/30/17 19:58 Bactrim Ds Tablet Administered 04/30/17 19:59 Dose 1 tab PO .STK-MED ONE Intake & Output (Last 24 hours) 04/29/17 04/30/17 05/01/17 05/02/17 11:59 11:59 11:59 11:59 Intake Total 1440 240 Output Total 3075 Balance -1635 240 Weight 108.862 kg 113.443 kg Microbiology Results (Last 24 hours) 04/30/17 10:50 Blood - Pending 04/30/17 10:50 Blood Blood Culture - Preliminary NO GROWTH TO DATE 04/30/17 10:45 Blood - Pending 04/30/17 10:45 Blood Blood Culture - Preliminary NO GROWTH TO DATE 04/30/17 15:30 Urine, Indwelling Catheter Urine Culture - Pending Laboratory Results (Last 24 hours) 04/30/17 04/30/17 04/30/17 23:15 20:30 16:48 Troponin I 0.032 0.037 0.035 04/30/17 13:45 Troponin I 0.035 Orders (Last 24 hours) Category Date Time Status Up With Assistance TOLERATED Activity 04/30/17 14:05 Active ACCUCHECK [Accucheck] ACHS Care 04/30/17 16:36 Active Admission/Status Order ROUTINE Care 04/30/17 14:05 Active Catheter-[place] Tanner STAT Care 04/30/17 14:05 Active Tanner [Catheter-[place] Tanner] STAT Care 04/30/17 13:18 Inactive IV Care Q6H Care 04/30/17 14:05 Active Implement CHF Pathway ROUTINE Care 04/30/17 14:05 Active Miscellaneous Nursing Order ROUTINE Care 04/30/17 17:49 Active Telemetry Q8H Care 04/30/17 14:05 Active Weight,Daily 0600 Care 04/30/17 14:05 Active Email Marketing Executive/Discharge Plan Cons 04/30/17 16:03 Active Low Sodium Diet 04/30/17 Dinner Active Nutritional Consult ROUTINE Diet 04/30/17 14:05 Active CULTURE,URINE Urgent Lab 04/30/17 15:30 Received TROPONIN Q3H Lab 04/30/17 13:45 Completed TROPONIN Q3H Lab 04/30/17 16:48 Completed TROPONIN Q3H Lab 04/30/17 20:30 Completed TROPONIN Q3H Lab 04/30/17 23:15 Completed Amlodipine Besylate 5 mg [Norvasc 5 mg] Med 04/30/17 19:59 Discontinued 5 mg .ROUTE .STK-MED ONE Amlodipine Besylate 5 mg [Norvasc 5 mg] Med 04/30/17 22:00 Active 5 mg PO HS Aspirin EC 81 mg [Ecotrin 81 mg] Med 04/30/17 19:57 Discontinued 81 mg PO .STK-MED ONE Aspirin EC 81 mg [Ecotrin 81 mg] Med 04/30/17 22:00 Active 81 mg PO HS Beta-Carotene(A) W-C & E/Min [Ocuvite Tablet] Med 04/30/17 19:58 Discontinued 1 tab .ROUTE .STK-MED ONE Beta-Carotene(A) W-C & E/Min [Ocuvite Tablet] Med 04/30/17 22:00 Active 1 tab PO HS Carvedilol 6.25 mg [Coreg 6.25 MG] Med 04/30/17 19:58 Discontinued 6.25 mg .ROUTE .STK-MED ONE Carvedilol 6.25 mg [Coreg 6.25 MG] Med 04/30/17 22:00 Active 6.25 mg PO BID Cholecalciferol (Vitamin D3) [Vitamin D] Med 05/01/17 10:00 Active 5,000 unit PO MoWeFr Cholecalciferol (Vitamin D3) [Vitamin D] Med 04/30/17 17:30 Discontinued 5,000 unit PO UD Clopidogrel Bisulfate 75 mg [PLAVIX 75 MG Tablet] Med 05/01/17 10:00 Active 75 mg PO DAILY Furosemide 20 mg [Lasix 20 mg] Med 05/01/17 10:00 Discontinued 20 mg PO DAILY Furosemide 40 mg/4 ml [Lasix 40 MG/4 ML] Med 04/30/17 17:00 Discontinued 40 mg IV BID DIURETIC Furosemide 40 mg/4 ml [Lasix 40 MG/4 ML] Med 05/01/17 12:45 Active 40 mg IV BID DIURETIC Gabapentin 300 mg [Neurontin 300 mg] Med 05/01/17 10:00 Active 300 mg PO MoWeFr Gabapentin 300 mg [Neurontin 300 mg] Med 04/30/17 17:15 Discontinued 300 mg PO UD Insulin Glargine [Lantus Insulin] Med 04/30/17 19:57 Discontinued 40 unit .ROUTE .STK-MED ONE Insulin Glargine [Lantus Insulin] Med 04/30/17 22:00 Active 40 unit SQ BID Lisinopril 20 mg [Zestril 20 MG] Med 05/01/17 10:00 Active 20 mg PO DAILY Loratadine 10 mg [Claritin 10 mg] Med 05/01/17 10:00 Active 10 mg PO DAILY Magnesium Oxide 400 mg [Mag-Ox 400] Med 04/30/17 19:58 Discontinued 400 mg .ROUTE .STK-MED ONE Magnesium Oxide 400 mg [Mag-Ox 400] Med 04/30/17 22:00 Active 400 mg PO HS Medication Intervention Med 04/30/17 17:24 Discontinued 1 each UD PRN Medication Intervention Med 04/30/17 17:25 Discontinued 1 each MC UD PRN Multivitamins,Therapeutic Tab* [Theragran Multivitamin* Med 05/01/17 10:00 Active ] 1 tab PO DAILY NaCl 0.9% 10 ML FLUSH [Sodium Chloride 0.9% 10 ML FLUSH Med 05/01/17 08:34 Active Syringe] 10 ml IV PRN PRN NaCl 0.9% 10 ML FLUSH [Sodium Chloride 0.9% 10 ML FLUSH Med 05/01/17 14:00 Active Syringe] 10 ml IV Q8HT Patient Own Med [Patient Own Medication] Med 05/01/17 10:00 Active 0 each PO DAILY Patient Own Med [Patient Own Medication] Med 05/01/17 22:00 Active 0 each PO HS Patient Own Med [Patient Own Medication] Med 05/01/17 22:00 Active 0 each PO HS Propafenone HCl 150 mg [Rythmol 150 mg] Med 04/30/17 19:57 Discontinued 150 mg .ROUTE .STK-MED ONE Propafenone HCl 150 mg [Rythmol 150 mg] Med 04/30/17 22:00 Active 150 mg PO BID Senna/Docusate Sodium Tab [Senokot-S Tablet] Med 04/30/17 20:58 Discontinued 1 udtab PO BID PRN Senna/Docusate Sodium Tab [Senokot-S Tablet] Med 05/01/17 06:15 Active 1 udtab PO BID PRN PRN Smz/Tmp Ds Tablet [Bactrim Ds Tablet] Med 04/30/17 19:58 Discontinued 1 tab PO .STK-MED ONE Smz/Tmp Ds Tablet [Bactrim Ds Tablet] Med 04/30/17 22:00 Active 1 tab PO BID Tramadol HCl 50 mg [Ultram 50 mg] Med 04/30/17 17:16 Active 100 mg PO Q6H/PRN PRN PT Screen per Nursing Assess ONCE PT 04/30/17 16:03 Completed BiPap/CPAP Assessment ROUTINE RT 04/30/17 21:00 Active EKG STAT RT 04/30/17 14:05 Completed Oxygen NASAL CANNULA 2 lpm RT 04/30/17 14:05 Active Pulse Oximetry OVERNIGHT RT 04/30/17 14:05 Active RT Screen per Nursing Assess ONCE RT 04/30/17 16:03 Completed Patient Care Notes (Last 24 hours) 04/30/17 22:52 Respiratory Note by Vinay Albarran PT IS REQUIRING BETWEEN 2-4LPM O2 TO MAINTAIN SATS OF 92% OR GREATER. PT WEARS A HM CPAP UNIT OF WHAT LOOKS LIKE A PRESSURE OF [id number]. I ATTEMPTED TO PUT PT ON HIS CPAP W/O O2 THIS EVENING FOR HIS CONT. PULSE OX. STUDY AND W/I TWO MINUTES HIS SATS DROPPED TO 87%. I PLACED PT ON HIS CPAP (WITH NASAL MASK) W/ 4LPM INLINE AND HIS SATS CONTINUED TO FLOAT BETWEEN 88%-90%. EVEN WHEN I INCREASED THE O2 IT WOULD DROP LOW 90%. I NOTICED THAT PT WAS "MOUTH BREATHING" AFTER HE DRIFTED TO SLEEP. I ASKED PT IF HE WOULD BE OK W/ ME PLACING HIM ON THE FULL FACE MASK THAT HE USED W/ OUR BIPAP IN THE ER, AND HE STATED THAT WAS FINE. AFTER CONNECTING OUR TUBING AND MASK TO HIS CPAP W/ 4LPM O2 HIS SATS WERE MAINTAINING 92%-93%. I INFORMED NURSING THAT WE WILL HOLD OFF ON CONT. PULSE OX STUDY AND THAT PT WAS ON HIS CPAP W/ 4LPM. Initialized on 04/30/17 22:52 - END OF NOTE Code(s): I50.9 - HEART FAILURE, UNSPECIFIED
--- NOTE | 2017-05-01 13:10 | PCM.NOTE ---
Date and Time: 05/01/17 1308 Subjective Assessment: doing better - Review of Systems Constitutional: No Fever, No Chills Eyes: No Symptoms Ears, Nose, & Throat: No Symptoms Respiratory: Orthopnea, Short Of Breath, No Cough Cardiac: No Chest Pain, No Edema, No Syncope Abdominal/Gastrointestinal: No Abdominal Pain, No Nausea, No Vomiting, No Diarrhea Genitourinary Symptoms: No Dysuria Musculoskeletal: No Back Pain, No Neck Pain Skin: No Rash Neurological: No Dizziness, No Focal Weakness, No Sensory Changes Psychological: No Symptoms Endocrine: No Symptoms Hematologic/Lymphatic: No Symptoms Immunological/Allergic: No Symptoms Objective Exam General Appearance: no apparent distress, alert Neurologic Exam: alert, oriented x 3, cooperative, normal mood/affect, nml cerebellar function, sensation nml, No motor deficits Skin Exam: normal color, warm, dry Eye Exam: PERRL, EOMI, eyes nml inspection Ears, Nose, Throat Exam: normal ENT inspection, pharynx normal, moist mucous membranes Neck Exam: normal inspection, non-tender, supple, full range of motion Respiratory Exam: diminished breath sounds, crackles/rales, rhonchi, No respiratory distress Cardiovascular Exam: regular rate/rhythm, normal heart sounds Gastrointestinal/Abdomen Exam: soft, No tenderness, No mass Extremity Exam: normal inspection, normal range of motion Back Exam: normal inspection, normal range of motion, No CVA tenderness, No vertebral tenderness Male Genitalia Exam: deferred Rectal Exam: deferred OBJECTIVE DATA Vital Signs: Vital Signs - 24 hr Temp Pulse Resp BP Pulse Ox 05/01/17 11:25 97.9 F 84 20 118/60 91 L 05/01/17 07:12 98.0 F 70 20 125/58 95 05/01/17 03:57 99.4 F 104 H 24 125/61 90 L 05/01/17 00:00 98.6 F 64 22 135/70 93 L 04/30/17 20:05 64 22 93 L 04/30/17 20:00 98.2 F 73 24 147/68 92 L 04/30/17 16:11 97.4 F 86 20 136/80 98 04/30/17 15:36 97.3 F 88 20 132/72 97 04/30/17 15:32 97 04/30/17 15:10 77 22 98 04/30/17 14:27 97.3 F 88 20 132/72 95 04/30/17 14:05 98 Oxygen-Last 24 hours O2 Percentage 4 Liters = 36% O2 Percentage 4 Liters = 36% O2 Percentage 4 Liters = 36% O2 Percentage 4 Liters = 36% O2 Percentage 4 Liters = 36% O2 Percentage 4 Liters = 36% O2 Percentage 4 Liters = 36% O2 Percentage 5 Liters = 40% Pain Assessment - Last Documented Pain Intensity 2 Pain Scale Used 0-10 Pain Scale Intake and Output: Intake & Output 04/29/17 04/30/17 05/01/17 05/02/17 11:59 11:59 11:59 11:59 Intake Total 1440 240 Output Total 2850 Balance -1410 240 Weight 113.443 kg Lab Results: Accuchecks Date 05/01/17 Date 05/01/17 Date 04/30/17 Date 04/30/17 Time 22:00 Time 16:03 Accucheck Value: 175 Accucheck Value: 89 Accucheck Value: 200 Accucheck Value: 73 Lab Results-Last 24 Hours 04/30/17 04/30/17 04/30/17 Range/Units 16:48 20:30 23:15 Troponin I 0.035 0.037 0.032 (0.000-0.056) ng/ml Multi-Disciplinary Progress Notes: Multi-Disciplinary Progress Notes 04/30/17 22:52 Respiratory Note by Vinay Albarran PT IS REQUIRING BETWEEN 2-4LPM O2 TO MAINTAIN SATS OF 92% OR GREATER. PT WEARS A HM CPAP UNIT OF WHAT LOOKS LIKE A PRESSURE OF [id number]. I ATTEMPTED TO PUT PT ON HIS CPAP W/O O2 THIS EVENING FOR HIS CONT. PULSE OX. STUDY AND W/I TWO MINUTES HIS SATS DROPPED TO 87%. I PLACED PT ON HIS CPAP (WITH NASAL MASK) W/ 4LPM INLINE AND HIS SATS CONTINUED TO FLOAT BETWEEN 88%-90%. EVEN WHEN I INCREASED THE O2 IT WOULD DROP LOW 90%. I NOTICED THAT PT WAS "MOUTH BREATHING" AFTER HE DRIFTED TO SLEEP. I ASKED PT IF HE WOULD BE OK W/ ME PLACING HIM ON THE FULL FACE MASK THAT HE USED W/ OUR BIPAP IN THE ER, AND HE STATED THAT WAS FINE. AFTER CONNECTING OUR TUBING AND MASK TO HIS CPAP W/ 4LPM O2 HIS SATS WERE MAINTAINING 92%-93%. I INFORMED NURSING THAT WE WILL HOLD OFF ON CONT. PULSE OX STUDY AND THAT PT WAS ON HIS CPAP W/ 4LPM. Initialized on 04/30/17 22:52 - END OF NOTE Assessment/Plan (1) CHF (congestive heart failure) Current Visit: Yes Status: Acute Qualifiers: Congestive heart failure type: combined Congestive heart failure chronicity : acute on chronic Qualified Code(s): I50.43 - Acute on chronic combined systolic (congestive) and diastolic (congestive) heart failure Assessment & Plan: Last Vital Signs Temp 97.9 F 05/01/17 11:25 Pulse 84 05/01/17 11:25 Resp 20 05/01/17 11:25 BP 118/60 05/01/17 11:25 Pulse Ox 91 L 05/01/17 11:25 Allergies morphine Allergy (Verified 04/30/17 10:36) Active Medications Amlodipine Besylate (Norvasc 5 Mg) 5 mg PO HS CRYSTAL Stop: 05/30/17 21:59 Last Admin: 04/30/17 21:04 Dose: 5 mg Aspirin (Ecotrin 81 Mg) 81 mg PO HS CRYSTAL Stop: 05/30/17 21:59 Last Admin: 04/30/17 21:04 Dose: 81 mg Carvedilol (Coreg 6.25 Mg) 6.25 mg PO BID CRYSTAL Stop: 05/30/17 21:59 Last Admin: 05/01/17 08:59 Dose: 6.25 mg Cholecalciferol (Vitamin D) 5,000 unit PO MoWeFr CRYSTAL Stop: 05/31/17 09:59 Last Admin: 05/01/17 09:02 Dose: 5,000 unit Clopidogrel Bisulfate (Plavix 75 Mg Tablet) 75 mg PO DAILY CRYSTAL Stop: 05/31/17 09:59 Last Admin: 05/01/17 08:57 Dose: 75 mg Furosemide (Lasix 40 Mg/4 Ml) 40 mg IV BID DIURETIC CRYSTAL Stop: 05/31/17 12:44 Last Admin: 05/01/17 12:54 Dose: 40 mg Gabapentin (Neurontin 300 Mg) 300 mg PO MoWeFr CRYSTAL Stop: 05/31/17 09:59 Last Admin: 05/01/17 09:02 Dose: 300 mg Insulin Glargine (Lantus Insulin) 40 unit SQ BID CRYSTAL Stop: 05/30/17 21:59 Last Admin: 05/01/17 08:59 Dose: 40 unit Lisinopril (Zestril 20 Mg) 20 mg PO DAILY CRYSTAL Stop: 05/31/17 09:59 Last Admin: 05/01/17 08:58 Dose: 20 mg Loratadine (Claritin 10 Mg) 10 mg PO DAILY CRYSTAL Stop: 05/31/17 09:59 Last Admin: 05/01/17 08:57 Dose: 10 mg Magnesium Oxide (Mag-Ox 400) 400 mg PO HS CRYSTAL Stop: 05/30/17 21:59 Last Admin: 04/30/17 21:04 Dose: 400 mg Multivitamins (Theragran Multivitamin) 1 tab PO DAILY CRYSTAL Stop: 05/31/17 09:59 Last Admin: 05/01/17 08:58 Dose: 1 tab Multivitamins/Minerals (Ocuvite Tablet) 1 tab PO HS CRYSTAL Stop: 05/30/17 21:59 Last Admin: 04/30/17 21:05 Dose: 1 tab Patient Own Med ( (Cinnamon)) 0 each PO DAILY CRYSTAL Stop: 05/31/17 09:59 Last Admin: 05/01/17 08:59 Dose: 1 each Patient Own Med ( (Mucinex-D)) 0 each PO HS CRYSTAL Stop: 05/31/17 21:59 Patient Own Med ( (Glucosamine)) 0 each PO HS CRYSTAL Stop: 05/31/17 21:59 Propafenone HCl (Rythmol 150 Mg) 150 mg PO BID CRYSTAL Stop: 05/30/17 21:59 Last Admin: 05/01/17 08:58 Dose: 150 mg Senna/Docusate Sodium (Senokot-S Tablet) 1 udtab PO BID PRN PRN PRN Reason: CONSTIPATION Stop: 05/30/17 20:57 Last Admin: 05/01/17 08:58 Dose: 1 udtab Sodium Chloride (Sodium Chloride 0.9% 10 Ml Flush Syringe) 10 ml IV Q8HT CRYSTAL Stop: 05/31/17 13:59 Last Admin: 05/01/17 12:54 Dose: 10 ml Sodium Chloride (Sodium Chloride 0.9% 10 Ml Flush Syringe) 10 ml IV PRN PRN PRN Reason: FLUSH Stop: 05/31/17 08:33 Tramadol HCl (Ultram 50 Mg) 100 mg PO Q6H/PRN PRN Stop: 05/30/17 17:15 Last Admin: 05/01/17 08:58 Dose: 100 mg Trimethoprim/Sulfamethoxazole (Bactrim Ds Tablet) 1 tab PO BID CRYSTAL Stop: 05/30/17 21:59 Last Admin: 05/01/17 08:57 Dose: 1 tab Intake & Output 05/01/17 05/02/17 11:59 11:59 Intake Total 1440 240 Output Total 3075 Balance -1635 240 Weight 113.443 kg Orders 04/30/17 16:03 Beam Racker/Discharge Plan 04/30/17 16:36 ACCUCHECK [Accucheck] ACHS 04/30/17 17:16 Tramadol HCl 50 mg [Ultram 50 mg] 100 mg PO Q6H/PRN PRN 04/30/17 17:49 Miscellaneous Nursing Order ROUTINE 04/30/17 21:00 BiPap/CPAP Assessment ROUTINE 04/30/17 22:00 Amlodipine Besylate 5 mg [Norvasc 5 mg] 5 mg PO HS Aspirin EC 81 mg [Ecotrin 81 mg] 81 mg PO HS Beta-Carotene(A) W-C & E/Min [Ocuvite Tablet] 1 tab PO HS Carvedilol 6.25 mg [Coreg 6.25 MG] 6.25 mg PO BID Insulin Glargine [Lantus Insulin] 40 unit SQ BID Magnesium Oxide 400 mg [Mag-Ox 400] 400 mg PO HS Propafenone HCl 150 mg [Rythmol 150 mg] 150 mg PO BID Smz/Tmp Ds Tablet [Bactrim Ds Tablet] 1 tab PO BID 05/01/17 06:15 Senna/Docusate Sodium Tab [Senokot-S Tablet] 1 udtab PO BID PRN PRN 05/01/17 08:34 NaCl 0.9% 10 ML FLUSH [Sodium Chloride 0.9% 10 ML FLUSH Syringe] 10 ml IV PRN PRN 05/01/17 10:00 Cholecalciferol (Vitamin D3) [Vitamin D] 5,000 unit PO MoWeFr Clopidogrel Bisulfate 75 mg [PLAVIX 75 MG Tablet] 75 mg PO DAILY Gabapentin 300 mg [Neurontin 300 mg] 300 mg PO MoWeFr Lisinopril 20 mg [Zestril 20 MG] 20 mg PO DAILY Loratadine 10 mg [Claritin 10 mg] 10 mg PO DAILY Multivitamins,Therapeutic Tab* [Theragran Multivitamin] 1 tab PO DAILY Patient Own Med [Patient Own Medication] 0 each PO DAILY 05/01/17 12:45 Furosemide 40 mg/4 ml [Lasix 40 MG/4 ML] 40 mg IV BID DIURETIC 05/01/17 14:00 NaCl 0.9% 10 ML FLUSH [Sodium Chloride 0.9% 10 ML FLUSH Syringe] 10 ml IV Q8HT 05/01/17 22:00 Patient Own Med [Patient Own Medication] 0 each PO HS Patient Own Med [Patient Own Medication] 0 each PO HS Lab Tests 04/30/17 04/30/17 04/30/17 13:45 16:48 20:30 Troponin I 0.035 0.035 0.037 04/30/17 23:15 Troponin I 0.032 Microbiology 04/30/17 10:50 Blood Blood Culture - Preliminary NO GROWTH TO DATE 04/30/17 10:45 Blood Blood Culture - Preliminary NO GROWTH TO DATE Code(s): I50.9 - HEART FAILURE, UNSPECIFIED
[2017-05-01] MEDS ORDERED: CITROMA 296 ML PO ONE (20:13)
[2017-05-01] MEDS: NORVASC 5 MG PO SCH (22:19)
[2017-05-01] MEDS: MAG-OX 400 PO SCH (22:20)
[2017-05-01] MEDS: Ocuvite Tablet PO SCH (22:20)
[2017-05-01] MEDS: ECOTRIN 81 MG PO SCH (22:20)
--- NOTE | 2017-05-02 07:07 | PCM.NOTE ---
Date and Time: 05/02/17705 Subjective Assessment: doing better - Review of Systems Constitutional: No Fever, No Chills Eyes: No Symptoms Ears, Nose, & Throat: No Symptoms Respiratory: No Cough, No Short Of Breath Cardiac: Edema, No Chest Pain, No Syncope Abdominal/Gastrointestinal: No Abdominal Pain, No Nausea, No Vomiting, No Diarrhea Genitourinary Symptoms: No Dysuria Musculoskeletal: No Back Pain, No Neck Pain Skin: No Rash Neurological: No Dizziness, No Focal Weakness, No Sensory Changes Psychological: No Symptoms Endocrine: No Symptoms Hematologic/Lymphatic: No Symptoms Immunological/Allergic: No Symptoms Objective Exam General Appearance: no apparent distress, alert Neurologic Exam: alert, oriented x 3, cooperative, normal mood/affect, nml cerebellar function, sensation nml, No motor deficits Skin Exam: normal color, warm, dry Eye Exam: PERRL, EOMI, eyes nml inspection Ears, Nose, Throat Exam: normal ENT inspection, pharynx normal, moist mucous membranes Neck Exam: normal inspection, non-tender, supple, full range of motion Respiratory Exam: normal breath sounds, lungs clear, No respiratory distress Cardiovascular Exam: regular rate/rhythm, normal heart sounds Gastrointestinal/Abdomen Exam: soft, No tenderness, No mass Extremity Exam: normal inspection, normal range of motion Back Exam: normal inspection, normal range of motion, No CVA tenderness, No vertebral tenderness Male Genitalia Exam: deferred Rectal Exam: deferred OBJECTIVE DATA Vital Signs: Vital Signs - 24 hr Temp Pulse Resp BP Pulse Ox 05/02/17 04:00 98 F 73 20 145/87 96 05/02/17 00:00 97.4 F 88 20 130/79 96 05/01/17 20:00 97.8 F 70 20 148/88 95 05/01/17 19:04 101 H 23 96 05/01/17 16:00 98.2 F 77 20 142/65 94 L 05/01/17 11:25 97.9 F 84 20 118/60 91 L 05/01/17 07:12 98.0 F 70 20 125/58 95 Oxygen-Last 24 hours O2 Percentage 4 Liters = 36% O2 Percentage 4 Liters = 36% O2 Percentage 4 Liters = 36% O2 Percentage 4 Liters = 36% O2 Percentage 4 Liters = 36% Pain Assessment - Last Documented Pain Intensity 0 Pain Scale Used FLACC Intake and Output: Intake & Output 04/29/17 04/30/17 05/01/17 05/02/17 11:59 11:59 11:59 11:59 Intake Total 1440 960 Output Total 2850 1800 Balance -1410 -840 Weight 113.443 kg Lab Results: Accuchecks Date 05/02/17 Date 05/01/17 Date 05/01/17 Date 05/01/17 Time 22:00 Accucheck Value: 197 Accucheck Value: 165 Accucheck Value: 175 Accucheck Value: 89 Multi-Disciplinary Progress Notes: Multi-Disciplinary Progress Notes 05/01/17 14:42 Case Management Note by Mar Rodney @ [facility] CALLED TO REPORT THAT THEY WOULD BE READY WHEN MD IS READY FOR DISCHARGE. Initialized on 05/01/17 14:42 - END OF NOTE 05/01/17 13:05 (created 05/01/17 14:41) Case Management Note by Mar Rodney REFERRAL TO [facility], SPOKE WITH MENDEZ. Initialized on 05/01/17 14:41 - END OF NOTE 05/01/17 12:45 (created 05/01/17 14:39) Case Management Note by Mar Rodney DR. ROUNDED AND EVALUATED, DISCUSSED REHAB STAY WITH PT/FAMILY. PT IS AGREEABLE FOR REHAB STAY. PT/FAMILY DISCUSSING OPTIONS. REPORTS THAT THEY WILL VISIT [facility] TODAY, AND THAT THEY REQUEST THAT REFERRAL BE MADE TO [facility] FOR SHORT TERM REHAB STAY ON DISCHARGE. Initialized on 05/01/17 14:39 - END OF NOTE Assessment/Plan (1) CHF (congestive heart failure) Current Visit: Yes Status: Acute Qualifiers: Congestive heart failure type: combined Congestive heart failure chronicity : acute on chronic Qualified Code(s): I50.43 - Acute on chronic combined systolic (congestive) and diastolic (congestive) heart failure Assessment & Plan: improving Code(s): I50.9 - HEART FAILURE, UNSPECIFIED
[2017-05-02] MEDS: Lantus Insulin SQ SCH ×2 (09:35→22:18)
[2017-05-02] MEDS: Zestril 20 MG PO SCH (09:36)
[2017-05-02] MEDS: Coreg 6.25 MG PO SCH ×2 (09:36→22:19)
[2017-05-02] MEDS: RYTHMOL 150 MG PO SCH ×2 (09:36→22:18)
[2017-05-02] MEDS: PLAVIX 75 MG Tablet PO SCH (09:36)
[2017-05-02] MEDS: BACTRIM DS TABLET PO SCH ×2 (09:36→22:18)
[2017-05-02] MEDS: THERAGRAN MULTIVITAMIN PO SCH (09:37)
[2017-05-02] MEDS: CLARITIN 10 MG PO SCH (09:37)
[2017-05-02] MEDS: PATIENT OWN MEDICATION PO SCH ×3 (09:37→22:20)
[2017-05-02] MEDS: Lasix 40 MG/4 ML IV SCH ×2 (09:38→18:14)
[2017-05-02] MEDS: ECOTRIN 81 MG PO SCH (22:18)
[2017-05-02] MEDS: MAG-OX 400 PO SCH (22:18)
[2017-05-02] MEDS: NORVASC 5 MG PO SCH (22:19)
[2017-05-02] MEDS: Ocuvite Tablet PO SCH (22:19)
[2017-05-02] MEDS: Sodium Chloride 0.9% 10 ML FLUSH Syringe IV SCH (22:33)
[2017-05-03] MEDS: ULTRAM 50 MG PO PRN (10:04)
[2017-05-03] MEDS: Coreg 6.25 MG PO SCH (10:05)
[2017-05-03] MEDS: THERAGRAN MULTIVITAMIN PO SCH (10:05)
[2017-05-03] MEDS: CLARITIN 10 MG PO SCH (10:05)
[2017-05-03] MEDS: RYTHMOL 150 MG PO SCH (10:05)
[2017-05-03] MEDS: Lasix 40 MG/4 ML IV SCH (10:05)
[2017-05-03] MEDS: BACTRIM DS TABLET PO SCH (10:05)
[2017-05-03] MEDS: Zestril 20 MG PO SCH (10:05)
[2017-05-03] MEDS: PLAVIX 75 MG Tablet PO SCH (10:05)
[2017-05-03] MEDS: Lantus Insulin SQ SCH (10:06)
[2017-05-03] MEDS: PATIENT OWN MEDICATION PO SCH (10:06)
[2017-05-03 11:17] VITALS: BP 118/62; PULSE 72; O2SAT 94
== END 2017-05-03 11:48 | DRG 999 ==
LOC: ED 10:23 → OBSVTOIN 14:00 → MED SURG 14:00
PROVIDERS: ADMIT General Practice; ATTEND General Practice
DX: I50.9 Heart failure, unspecified (principal); Z79.899 Other long term (current) drug therapy
CPT/HCPCS: 36000; 36415; 36600; 71010; 80053; 82375; 82803; 82962; 83605; 83880; 84484; 85025; 85379; 87040; 87086; 93005; 93041; 94002; 94760; 94761; 99285; J1940; A9270-GY

== ENCOUNTER 2017-05-06 18:00 | Emergency (ER) | payer MEDICARE, OTHER ==
--- NOTE | 2017-05-06 18:12 | ERPHSYRPT ---
- History of Present Illness Time Seen by Provider: 05/06/17 18:01 Source: patient, family, EMS, old records Exam Limitations: no limitations Physician History: patient here for evaluation of possible DVT lUE; he was recently hospitalized for cellulitis left arm; he continues to have pain and swelling of the left arm between the shoulder and elbow; no trauma; no prior hx of DVT; on ASA and Plavix ; no fever or new injury Occurred: last week Method of Injury: other Quality: constant, aching Severity of Pain-Max: moderate Severity of Pain-Current: moderate Extremities Pain Location: arm: left (upper between the elbow and shoulder on the right) Modifying Factors: Improves With: movement Associated Symptoms: none Allergies/Adverse Reactions: morphine Allergy (Verified 05/06/17 18:24) Home Medications: Amlodipine Besylate 5 mg [Norvasc 5 mg] 5 mg PO HS 01/30/15 [History] Aspirin 81 gm Chew [Baby Aspirin 81 mg Chew] 81 mg PO HS 01/30/15 [History ] Carvedilol Phosphate [Coreg Cr] 20 mg PO HS 01/30/15 [History] Cholecalciferol (Vitamin D3) [Vitamin D3] 1 cap PO UD 01/30/15 [History] Cinnamon Bark [Cinnamon] 1,000 mg PO DAILY 01/30/15 [History] Clopidogrel Bisulfate 75 mg [PLAVIX 75 MG Tablet] 75 mg PO DAILY 01/30/15 [History] Gabapentin 300 mg PO UD 01/30/15 [History] Glucosamine Sulfate Dipot Chlr [Glucosamine] 2,000 mg PO HS 01/30/15 [History] Guaifenesin/Pseudoephedrne HCl [Mucinex D ER Tablet] 400 mg PO HS 01/30/15 [ History] Insulin Glargine [Lantus Insulin] 40 unit SQ BID 01/30/15 [History] Lisinopril 20 mg [Zestril 20 MG] 20 mg PO DAILY 01/30/15 [History] Propafenone HCl 150 mg [Rythmol 150 mg] 150 mg PO BID 01/30/15 [History] Beta-Carotene(A)-Vits C,E/Mins [Vision Vitamins] 1 each PO HS 04/24/17 [History] Cetirizine HCl [Allergy Relief] 10 mg PO DAILY 04/24/17 [History] Magnesium Oxide [Magnesium] 400 mg PO HS 04/24/17 [History] Multivit-Mins/Iron/Folic/Lycop [Centrum Men's Tablet] 1 each PO DAILY 04/24/17 [ History] Tramadol HCl [Tramadol HCl ER] 100 mg PO Q6HPRN PRN 04/24/17 [History] Naproxen Sodium 220 mg [Aleve 220 MG] 220 mg PO Q6HPRN PRN 04/30/17 [ History] Sennosides/Docusate Sodium [Docusate Sodium-Senna Tablet] 1 each PO BIDPRN PRN 04/30/17 [History] Hx Tetanus, Diphtheria Vaccination/Date Given: No Hx Influenza Vaccination/Date Given: Yes Hx Pneumococcal Vaccination/Date Given: Yes - Review of Systems Constitutional: No Symptoms Eyes: No Symptoms Ears, Nose, & Throat: No Symptoms Respiratory: No Cough, No Dyspnea, No Wheezing Cardiac: Edema, No Chest Pain, No Palpitations, No Syncope Abdominal/Gastrointestinal: No Abdominal Pain, No Nausea, No Vomiting, No Diarrhea Genitourinary Symptoms: No Symptoms Musculoskeletal: Arthralgias, No Fall, No Injury Skin: Cellulitis (LUE) Neurological: No Focal Weakness, No Paralysis, No Parasthesia, No Seizure, No Sensory Changes Psychological: No Symptoms Endocrine: Polyuria, Polydipsia, Cold Intolerance Hematologic/Lymphatic: Anemia, Easy Bruising Immunological/Allergic: No Symptoms - Past Medical History Pertinent Past Medical History: Yes Neurological History: No Pertinent History ENT History: No Pertinent History Cardiac History: High Cholesterol Respiratory History: No Pertinent History Endocrine Medical History: Diabetes Type II Musculoskeletal History: No Pertinent History GI Medical History: No Pertinent History History: Renal Disease Male Reproductive Disorders: No Pertinent History - Past Surgical History Past Surgical History: Yes (knee, hip replacement, stint) Neuro Surgical History: No Pertinent History Cardiac: Cardiac Stent Respiratory: No Pertinent History Gastrointestinal: No Pertinent History Genitourinary: No Pertinent History Musculoskeletal: Joint Replacement Male Surgical History: No Pertinent History Other Surgical History: R. Hip, Knee replacent - Social History Smoking Status: Never smoker Exposure to second hand smoke: Yes Alcohol Use: None Drug Use: none Patient Lives Alone: No Significant Family History: diabetes, hypertension - Nursing Vital Signs Nursing Vital Signs: Initial Vital Signs Temperature 98.1 F 05/06/17 18:03 Pulse Rate 76 05/06/17 18:03 Respiratory Rate 18 05/06/17 18:03 Blood Pressure 139/58 05/06/17 18:03 O2 Sat by Pulse Oximetry 97 05/06/17 18:03 Pain Scale Pain Intensity 4 - Physical Exam General Appearance: mild distress, alert, obese Eyes, Ears, Nose, Throat Exam: normal ENT inspection, TMs normal, pharynx normal , moist mucous membranes Neck Exam: normal inspection, non-tender, supple, full range of motion, No meningismus, No subcutaneous emphysema Cardiovascular/Respiratory Exam: chest non-tender, no M/R/G, no respiratory distress, rales (few dry bibasilar), No normal breath sounds (deminished BS), No heart sounds normal (muffled) Abdominal Exam: non-tender, soft, no organomegaly Back Exam: normal inspection, normal range of motion, No CVA tenderness Shoulder Exam: normal inspection, non-tender, no evidence of injury, normal ROM Elbow/Forearm Exam: non-tender, no evidence of injury, normal ROM, swelling ( edema of mid upper arm to distal forearm; bruising; no cords; good pulses distal ;good ROM; pain in upper arm but not tender), No bone tenderness Wrist Exam: normal inspection, non-tender, no evidence of injury, normal ROM Hand Exam: normal inspection, non-tender, no evidence of injury, normal ROM, swelling (ST edema) Neuro/Tendon Exam: normal sensation, normal motor functions, normal tendon functions, responds to pain Mental Status Exam: alert, oriented x 3, cooperative Skin Exam: warm, dry, ecchymosis (scattered small), pale, No normal color (pale) , No rash, No embolic lesions SpO2 Interpretation: normal SpO2: 99 Oxygen Delivery: Room Air - Course Nursing assessment & vital signs reviewed: Yes - Radiology Ultrasound Exam Left Venous Upper Extremity Ultrasound: tele radiology report, negative, Other (no DVT) Ordered Tests: Active Orders 24 hr Category Date Time Status IV Insertion STAT Care 05/06/17 18:03 Inactive VENOUS UNILAT/LIMITED EXTREMIT [US] Stat Exams 05/06/17 18:06 Ordered CBC W DIFF Stat Lab 05/06/17 18:35 Completed PROTIME WITH INR Stat Lab 05/06/17 18:35 Received PTT Stat Lab 05/06/17 18:35 Received Lab/Rad Data: Laboratory Result Diagrams 05/06/17 18:35 Laboratory Results 05/06/17 Range/Units 18:35 WBC 10.2 (4.0-10.5) K/mm3 RBC 3.74 L (4.1-5.6) M/mm3 Hgb 11.7 L (12.5-18.0) gm/dl Hct 36.5 L (42-50) % MCV 97.6 (78-100) fl MCH 31.2 (26-32) pg MCHC 32.1 (32-36) g/dl RDW 12.7 (11.5-14.0) % Plt Count 317 (150-450) K/mm3 MPV 9.0 (6-9.5) fl Gran % 71.2 H (36.0-66.0) % Lymphocytes % 14.3 L (24.0-44.0) % Monocytes % 12.0 (0.0-12.0) % Eosinophils % 1.8 (0.00-5.0) % Basophils % 0.7 (0.0-0.4) % Basophils # 0.07 (0-0.4) - Progress Progress: re-examined (after tests) Progress Note: 05/06/17 18:14 family concerned about a possible DVT in left upper arm; Dr Moulton sent him in for evaluation; US ordered of LUX to evaluate for DVT; family at bedside; treatment plan outlined; will monitor and recheck; labs pending 05/06/17 19:01 recheck after US- No DVT; treatment plan and instructions given; will return to [place]; anemia iwht H/H 11.7/ 36.5; ; WBC 10.2; family notified Counseled pt/family regarding: lab results, diagnosis, need for follow-up, rad results - Departure Time of Disposition: 19:02 Departure Disposition: Extended Care Facility Clinical Impression: Cellulitis of arm, left Condition: Stable Critical Care Time: No Critical Care Time(excluding separately billable procedures): 30-74 minutes Referrals: MAKI HANLEY [Primary Care Provider] - Instructions: Cellulitis -- Adult Additional Instructions: elevate; warm compresses; continue meds; Follow-up with family doctor as directed. Call for appointment. Return if any problems. If you smoke please stop. Call or follow up with your family doctor for assistance if you need it to stop. Please wear your seatbelt when driving. Have a nice day. Thank you for allowing us to participate in your care today. :o) Dr Hank Ricardo
[2017-05-06 18:36] LABS: BASOPHIL % 0.7 % (0.0-0.4); Eosinophil % 1.8 % (0.00-5.0); Granulocytes % 71.2 % (36.0-66.0); Lymphocytes % 14.3 % (24.0-44.0); Mean Cell Volume 97.6 fl (78-100); Platelet Count 317 K/mm3 (150-450); Red Blood Count 3.74 M/mm3 (4.1-5.6); Red Cell Distribution Width 12.7 % (11.5-14.0); White Blood Count 10.2 K/mm3 (4.0-10.5)
[2017-05-06 18:46] LABS: Mean Corpuscular Hemoglobin 31.2 pg (26-32)
[2017-05-06 19:00] LABS: INR 1.13 (0.8-3.0); PROTIME 12.6 SECONDS (8.83-12.87)
[2017-05-06 19:02] LABS: PTT 28.4 SECONDS (24.1-36.1)
[2017-05-06 19:07] VITALS: BP 149/67; PULSE 70; O2SAT 97
--- NOTE | 2017-05-07 08:48 | XRAY ---
Indication: Left arm pain. Two-dimensional sonogram and color Doppler imaging of the major venous vessels of the left upper extremity was performed. Comparison: None No thrombus seen in the visualized left jugular, subclavian, axillary, brachial, radial, ulnar, and cephalic veins. Veins demonstrate normal compressibility. Venous waveforms are normal with and without augmentation. There is incidental small focus of subcutaneous edema at the level of forearm. Impression: Left upper extremity negative for venous thrombus. Comment: Preliminary report was given.
== END 2017-05-06 19:45 ==
LOC: ED 18:00
DX: L03.114 Cellulitis of left upper limb (principal); E78.00 Pure hypercholesterolemia, unspecified; E11.9 Type 2 diabetes mellitus without complications; Z79.899 Other long term (current) drug therapy; Z79.84 Long term (current) use of oral hypoglycemic drugs; Z79.4 Long term (current) use of insulin; M79.602 Pain in left arm
CPT/HCPCS: 36415; 85025; 85610; 85730; 93971; 99284